=== PATIENT | female | born 2000 | race Caucasian/White ===

== ENCOUNTER 2021-08-11 14:50 | Emergency (ER) | payer OTHER, SELFPAY ==
[2021-08-11 15:12] VITALS: BP 119/77; PULSE 112; RESP 16; TEMP 36.4; O2SAT 98
--- NOTE | 2021-08-11 15:16 | ECG_ITS ---
Measurements Intervals [place] Rate: 109 P: 17 SD: 143 QRS: 22 QRSD: 89 T: -5 QT: 304 QTc: 411 Interpretive Statements SINUS TACHYCARDIA MINIMAL Q WAVES- INFERIOR LEADS NONSPECIFIC T-WAVE ABNORMALITY- ANT/INF LEADS ABNORMAL ECG Electronically Signed On 08-11-2021 19:56:38 [employer] by Jose Alberto Stern D.O.
[2021-08-11 15:46] LABS: Basophils Percent Auto 0.4 % (0.2-1.2); Eosinophils Percent Auto 0.1 % (0-4.4); Hemoglobin 13.7 g/dL (12.0-15.0); Immature Granulocyte Absolute 0.07 K/mm3 (0.00-0.031); Immature Granulocyte Percent A 0.7 % (0-0.5); Lymphocytes Absolute Auto 1.16 K/mm3 (0.9-3.2); Lymphocytes Percent Auto 11.2 % (18.3-44.2); Mean Corpuscular HGB Conc 33.4 g/dl (32-36); Mean Corpuscular Hemoglobin 28.9 pg (26-34); Mean Corpuscular Volume 86.5 fl (80-100); Mean Platelet Volume 9.3 fl (7.4-10.4); Monocytes Absolute Auto 0.5 K/mm3 (0.1-0.6); Monocytes Percent Auto 4.8 % (2.6-8.5); Neutrophils Absolute Auto 8.6 K/mm3 (1.3-6.7); Neutrophils Percent Auto 82.8 % (45.5-73.1); Platelet Count Result 291 k/mm3 (150-375); Red Blood Count 4.74 M/mm3 (4.2-5.4); Red Cell Distribution Width 13.4 % (11.5-14.5); White Blood Count 10.4 K/mm3 (4.5-10.0)
[2021-08-11 15:58] LABS: Alanine Aminotransferase 25 U/L (4-35); Albumin Level 4.6 g/dL (3.5-5.1); Alkaline Phosphatase 80 U/L (38-126); Anion Gap 9 mmol/L (8-16); Aspartate Amino Transferase 25 U/L (14-36); Bilirubin,Total 0.4 mg/dL (0.2-1.3); Blood Urea Nitrogen 12 mg/dL (7-17); Calcium 9.3 mg/dL (8.4-10.2); Carbon Dioxide 23 mmol/L (22-30); Chloride 102 mmol/L (98-107); Estimated CRCL calculation 123 ml/min; Estimated Glomerular Filt Rate > 60; Glucose 100 mg/dL (65-110); Potassium 4.4 mmol/L (3.4-5.0); Sodium 134 mmol/L (137-145)
[2021-08-11 16:22] VITALS: O2SAT 99
[2021-08-11 16:35] VITALS: PULSE 84
[2021-08-11 16:43] VITALS: BP 132/83; PULSE 85; RESP 20; O2SAT 99
--- NOTE | 2021-08-11 16:52 | ED.SEIZURE ---
HPI - Seizure General Chief Complaint: Seizure Stated Complaint: seizure Time Seen by Provider: 08/11/21 16:52 Source: patient Mode of arrival: ambulatory Limitations: no limitations History of Present Illness HPI Narrative: Patient is a 20-year-old female brought in by family after having a seizure while she was in the car, described as tonic-clonic that lasted for approximately 1 minute. Patient has a history of seizure and takes zonisamide and Vimpat for it. Patient states that she ran out of her seizure medication and has not taken it for the past 2 days but was able to get it filled today. Patient also states that she had some marijuana and alcohol use last night. Patient states it has been a year since her last seizure, was asymptomatic prior to her seizure. Patient denies any headache, chest pain, shortness of breath, abdominal pain, nausea, vomiting, diarrhea, urinary symptoms, fever or chills. Seizure History: Yes Related Data Home Medications Medication Instructions Recorded Confirmed albuterol sulfate INHALATION 08/11/21 cholecalciferol (vitamin D3) 08/11/21 cyclobenzaprine mg 08/11/21 folic acid 08/11/21 lacosamide [Vimpat] 08/11/21 lacosamide [Vimpat] 08/11/21 sumatriptan succinate mg PO 08/11/21 tiotropium bromide [Spiriva with INHALATION 08/11/21 HandiHaler] trazodone 08/11/21 zonisamide PO 08/11/21 Allergies Allergy/AdvReac Type Severity Reaction Status Date / Time amoxicillin Allergy Intermediate RASH Verified 08/11/21 16:38 levetiracetam Allergy Intermediate RASH Verified 08/11/21 16:38 clindamycin Allergy Rash Verified 08/11/21 16:37 codeine AdvReac Unknown GI UPSET Verified 08/11/21 16:37 Review of Systems Review of Systems: All systems reviewed & are unremarkable except as noted in HPI and below Constitutional: Constitutional: Denies body ache(s), Denies chills, Denies excessive sweating, Denies fatigue, Denies fever(s), Denies headache(s), Denies lethargy, Denies malaise, Denies weakness and Denies weight loss Eyes: Eyes: Denies blurry vision, Denies change in vision and Denies loss of vision ENT: Denies dizziness, Denies ear discharge, Denies headache(s), Denies lip swelling, Denies epistaxis, Denies nasal congestion, Denies neck pain, Denies throat swelling and Denies tongue swelling Cardiovascular: Cardiovascular: Denies chest pain, Denies chest pain at rest, Denies chest pain with activity, Denies diaphoresis, Denies rapid heart rate, Denies edema, Denies irregular heart rhythm, Denies lightheadedness, Denies palpitations, Denies dyspnea and Denies dyspnea on exertion Respiratory: Respiratory: Denies chest congestion, Denies cough, Denies hemoptysis, Denies dyspnea and Denies dyspnea on exertion Gastrointestinal: Gastrointestinal: Denies abdominal pain, Denies melena, Denies hematochezia, Denies diarrhea, Denies nausea, Denies vomiting and Denies hematemesis Musculoskeletal: Musculoskeletal: Denies abnormal gait, Denies deformity, Denies joint swelling, Denies limited range of motion, Denies neck pain and Denies numbness Neurologic: Denies Abnormal speech present, Denies abnormal gait, Denies confusion, Denies dizziness, Denies headache(s), Denies focal weakness, Denies loss of vision, Denies numbness, Denies Other visual disturbances, Denies Sensory deficit (Neuro) and Denies weakness Psychiatric: Psychiatric: Denies confusion, Denies depression, Denies auditory hallucinations, Denies homicidal ideation and Denies suicidal ideation Endocrine: Endocrine: Denies cold intolerance, Denies excessive sweating, Denies fatigue, Denies heat intolerance and Denies palpitations Hematologic/Lymphatic: Hematologic/Lymphatic: Denies easy bleeding and Denies easy bruising Allergic/Immunologic: Allergic/Immunologic: Denies lip swelling, Denies throat swelling and Denies tongue swelling PMFSH Comments Past medical history: Seizure Family history: Noncontributory Social history: Non-smoker no
[2021-08-11 17:46] LABS: Add Urine Microscopic? YES; Appearance Urine Cloudy (Clear); Bilirubin Urine Negative (Negative); Blood Urine Negative (Negative); Color Urine Yellow (Yellow); Glucose Urine UA Negative (Negative); Ketones Urine Negative (Negative); Leukocyte Esterase Ur Negative LEU/UL (Negative); Mucus Urine Few /lpf; Nitrate Urine Negative (Negative); Protein Urine 1+ mg/dL (Negative); RBC Urine 0-2 /hpf (0-2); Specific Grav Ur 1.021 (1.001-1.035); Squamous Epithelial Cell Urine Few /hpf (Few); Urobilinogen Urine Negative mg/dL (<2.0); WBC Urine 0-3 /hpf
[2021-08-11 17:54] VITALS: BP 134/96; PULSE 76; RESP 16; O2SAT 100
[2021-08-11 18:16] VITALS: BP 91/77; PULSE 79; RESP 22; O2SAT 100
== END 2021-08-11 18:18 | disposition home or self-care (01) ==
PROVIDERS: Emergency Provider Emergency Medicine; PCP Family Medicine
DX: G40.409 Other generalized epilepsy and epileptic syndromes, not intractable, without status epilepticus (principal); Z91.14 Patient's other noncompliance with medication regimen; R00.0 Tachycardia, unspecified; R94.31 Abnormal electrocardiogram [ECG] [EKG]
CPT/HCPCS: 36415; 80053; 81001; 81025; 85025; 93005; 99283

== ENCOUNTER 2022-07-04 17:28 | Emergency (ER) | payer OTHER, SELFPAY ==
--- NOTE | ~2022-07-04 | US_ITS ---
EXAMINATION: US pelvic complete w TV DATE: 07/04/2022 21:02 INDICATION: Left adnexal pain TECHNIQUE: Multiple transabdominal and endovaginal sonographic images of the pelvis were obtained. COMPARISON: None. FINDINGS: The uterus measures 6.4 x 3.5 x 3.0 cm. The endometrial complex measures 4 mm. The right ov miladys is not visualized however no right adnexal abnormality is seen. The left ovary measures 4.7 x 4.7 x 3.8 cm and contains a 4.4 cm cyst. There is normal vascular flow in the left ovary. There is no fr ee fluid in the pelvis. IMPRESSION: 1. Left ovarian cyst. No evidence of torsion. Reviewed, dictated and finalized at location F.
[2022-07-04 18:04] VITALS: BP 135/93; PULSE 115; RESP 14; TEMP 36.2; O2SAT 98
[2022-07-04 18:19] LABS: Basophils Absolute Auto 0.1 K/mm3 (0.0-0.1); Basophils Percent Auto 0.5 % (0.2-1.2); Eosinophils Absolute Auto 0.1 K/mm3 (0-0.3); Eosinophils Percent Auto 0.8 % (0-4.4); Hematocrit 41.9 % (37.0-47.0); Hemoglobin 14.1 g/dL (12.0-15.0); Immature Granulocyte Absolute 0.05 K/mm3 (0.00-0.031); Immature Granulocyte Percent A 0.5 % (0-0.5); Lymphocytes Absolute Auto 2.43 K/mm3 (0.9-3.2); Lymphocytes Percent Auto 26.2 % (18.3-44.2); Mean Corpuscular HGB Conc 33.7 g/dl (32-36); Mean Corpuscular Hemoglobin 29.8 pg (26-34); Mean Corpuscular Volume 88.6 fl (80-100); Mean Platelet Volume 9.2 fl (7.4-10.4); Monocytes Absolute Auto 0.6 K/mm3 (0.1-0.6); Monocytes Percent Auto 6.8 % (2.6-8.5); Neutrophils Absolute Auto 6.1 K/mm3 (1.3-6.7); Neutrophils Percent Auto 65.2 % (45.5-73.1); Platelet Count Result 317 k/mm3 (150-375); Red Blood Count 4.73 M/mm3 (4.2-5.4); White Blood Count 9.3 K/mm3 (4.5-10.0)
[2022-07-04 18:28] LABS: Alanine Aminotransferase 25 U/L (6-35); Albumin Level 4.5 g/dL (3.5-5.1); Alkaline Phosphatase 67 U/L (38-126); Anion Gap 11 mmol/L (8-16); Aspartate Amino Transferase 27 U/L (14-36); Bilirubin,Total 0.3 mg/dL (0.2-1.3); Blood Urea Nitrogen 13 mg/dL (7-17); Calcium 8.8 mg/dL (8.4-10.2); Carbon Dioxide 21 mmol/L (22-30); Chloride 106 mmol/L (98-107); Estimated CRCL calculation 105 ml/min; Estimated Glomerular Filt Rate > 60; Glucose 113 mg/dL (65-110); Lipase 167 U/L (23-300); Sodium 138 mmol/L (137-145)
[2022-07-04 18:54] LABS: Add Urine Microscopic? YES; Amorphous Sediment Urine Few; Appearance Urine Cloudy (Clear); Bilirubin Urine Negative (Negative); Blood Urine Negative (Negative); Color Urine Yellow (Yellow); Glucose Urine UA Negative (Negative); Ketones Urine Negative (Negative); Leukocyte Esterase Ur Negative LEU/UL (Negative); Mucus Urine Rare /lpf; Nitrate Urine Negative (Negative); Protein Urine Negative (Negative); Specific Grav Ur 1.019 (1.001-1.035); Squamous Epithelial Cell Urine Occasional /hpf (Few); Urobilinogen Urine Negative mg/dL (<2.0); WBC Urine 0-3 /hpf
--- NOTE | 2022-07-04 20:03 | ED.ABDPAIN ---
HPI - Abdominal Pain General Chief Complaint: Abdominal Pain Stated Complaint: ovarian cyst, abd pain Time Seen by Provider: 07/04/22 19:50 History of Present Illness HPI narrative: Patient is a 21-year-old female who presents ER with lower abdominal pain. 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 She has had increased pain today that is new for her. No vaginal bleeding or discharge. She was urged to be evaluated at an ER in case there is rupture or torsion. Patient reports she is taking ibuprofen without improvement of discomfort. No fevers chills or sweats. No vomiting. No additional concerns. Related Data Home Medications Medication Instructions Recorded Confirmed albuterol sulfate 90 mcg/actuation inhalation 08/11/21 aerosol inhaler cholecalciferol (vitamin D3) 1,250 08/11/21 mcg (50,000 unit) capsule cyclobenzaprine 10 mg tablet mg 08/11/21 folic acid 1 mg tablet 08/11/21 lacosamide 100 mg tablet (Vimpat) 08/11/21 lacosamide 200 mg tablet (Vimpat) 08/11/21 sumatriptan succinate 50 mg tablet mg PO 08/11/21 tiotropium bromide 18 mcg capsule inhalation 08/11/21 with inhalation device (Spiriva with HandiHaler) trazodone 50 mg tablet 08/11/21 zonisamide 100 mg capsule PO 08/11/21 Allergies Allergy/AdvReac Type Severity Reaction Status Date / Time amoxicillin Allergy Intermediate RASH Verified 08/11/21 16:38 levetiracetam Allergy Intermediate RASH Verified 08/11/21 16:38 clindamycin Allergy Rash Verified 08/11/21 16:37 codeine AdvReac Unknown GI UPSET Verified 08/11/21 16:37 Review of Systems Review of Systems: All systems reviewed & are unremarkable except as noted in HPI and below Constitutional: Constitutional: Denies chills, Denies fatigue and Denies fever(s) ENT: Denies dysphagia and Denies sore throat Cardiovascular: Cardiovascular: Denies chest pain, Denies radiating jaw, neck or arm pain and Denies slow heart rate Respiratory: Respiratory: Denies cough and Denies dyspnea Gastrointestinal: Gastrointestinal: Reports abdominal pain, Denies diarrhea, Denies nausea and Denies vomiting Genitourinary: Genitourinary: Denies abnormal vaginal bleeding, Denies dysuria, Reports pelvic pain, Denies flank pain and Denies vaginal discharge PMFSH Past Medical History Medical History (Updated 07/04/22 @ 21:55 by Ilan Khanna MD) Ovarian cyst Surgical History Surgical History (Updated 07/04/22 @ 20:10 by Ilan Khanna MD) H/O cervical polypectomy Social History Social History (Updated 07/04/22 @ 20:10 by Ilan Khanna MD) Smoking status: Light tobacco smoker Exam Narrative: GENERAL: Well-appearing, obese, and in no acute distress. HEAD: Normocephalic, atraumatic. EYES: PERRL and EOMI. ENT: Mucous membranes moist. CHEST: Clear to auscultation. No respiratory distress. HEART: Regular rate and rhythm. Normal peripheral pulses. ABDOMEN: Soft, mild tenderness left lower quadrant, nondistended. EXTREMITIES: Normal range of motion. No edema. SKIN: Warm, dry, no rash. NEURO: Alert and oriented x3. PSYCH: Normal mood and affect. Course Course Emergency Course: Patient informed of results. Discharge home. Vital Signs Vital signs: Vital Signs Temperature 97.2 F L 07/04/22 18:04 Pulse Rate 115 H 07/04/22 18:04 Respiratory Rate 14 07/04/22 18:04 Blood Pressure 135/93 H 07/04/22 18:04 Pulse Oximetry 98 07/04/22 18:04 Oxygen Delivery Room Air 07/04/22 18:04 Temperature 97.2 F L 07/04/22 18:04 Pulse Rate 97 07/04/22 20:12 Respiratory Rate 18 07/04/22 20:12 Blood Pressure 127/79 07/04/22 20:12 Pulse Oximetry 99 07/04/22 20:12 Oxygen Delivery Room Air 07/04/22 18:04 MDM - Abdominal Pain Lab Data Result diagrams: 07/04/22 18:14 07/04/22 18:14 Labs: Lab Results 07/04/22 07/04/22 07/04/22 Range/Units 18:14 18
[2022-07-04 20:12] VITALS: BP 127/79; PULSE 97; RESP 18; O2SAT 99
--- NOTE | 2022-07-04 20:36 | PC.NURSE ---
Pt resting in stretcher at this time. No requests. No New orders.
[2022-07-04] MEDS: MORPHINE SULFATE (*CRX) 4 MG/ML INJ IV PUSH (21:26)
[2022-07-04 22:27] VITALS: BP 138/74; PULSE 99; RESP 18; O2SAT 98
== END 2022-07-04 23:10 | disposition home or self-care (01) ==
PROVIDERS: Emergency Medicine; Emergency Provider Emergency Medicine
DX: N83.202 Unspecified ovarian cyst, left side (principal); F17.200 Nicotine dependence, unspecified, uncomplicated
CPT/HCPCS: 36415; 76830; 76856; 80053; 81001; 81025; 83690; 85025; 96374; 99284; J2270